=== PATIENT | female | born 2000 | race African-American/Black ===

== ENCOUNTER 2025-03-27 10:09 | Inpatient (IN) | payer MEDICAID ==
[~2025-03-27] VITALS: Ht 165.1 cm; Wt 75.0 kg
[2025-03-27 10:17] VITALS: O2SAT 100
[2025-03-27] MEDS: SODIUM CHLORIDE 0.9% 1,000 ML IV ONE (11:57)
[2025-03-27] MEDS: KETOROLAC 15MG/ML VIAL IV ONE (11:58)
[2025-03-27 12:11] LABS: BASOPHILS % 0.9 % (0.0-2.0); EOSINOPHILS % 2.3 % (0.0-5.0); HEMATOCRIT. 38.5 % (36.0-48.0); HEMOGLOBIN. 12.2 g/dL (12.0-16.0); LYMPHOCYTES % 39.8 % (20.0-50.0); MEAN PLATELET VOLUME 7.2 fl (7.4-10.4); MONOCYTES % 6.0 % (2.0-8.0); NEUTROPHILS % 51.0 % (40.0-76.0); PLATELET 383 x1000/uL (130-400); RED BLOOD CELL COUNT 5.11 mill/uL (4.2-5.4); RED CELL DISTRIBUTION WIDTH 17.1 % (11.6-14.6)
[2025-03-27 12:24] LABS: CREATININE 0.7 mg/dL (0.6-1.0)
[2025-03-27 12:25] LABS: HCG SCREEN NEGATIVE; UREA NITROGEN BLOOD 7 mg/dL (9-23)
[2025-03-27 12:29] LABS: TROPONIN I HIGH SENSITIVITY < 4 ng/L (3.0-34)
[2025-03-27 14:02] VITALS: O2SAT 100
[2025-03-27 17:12] VITALS: BP 134/62; PULSE 60; RESP 16; TEMP 36.696; TEMP 36.6960
== END 2025-03-27 16:00 | disposition left against medical advice (07) | DRG 111 ==
LOC: ER 10:09 → EDBEDREQ 11:45 → 5WST 13:17 → EDBEDREQTM 13:22 → EDBEDREQ 13:22
PROVIDERS: ADMIT Internal Medicine; ATTEND Internal Medicine
DX: R42 Dizziness and giddiness (principal); R07.9 Chest pain, unspecified; R10.13 Epigastric pain; Z53.29 Procedure and treatment not carried out because of patient's decision for other reasons; Z82.49 Family history of ischemic heart disease and other diseases of the circulatory system
CPT/HCPCS: 36415; 71045; 76705; 80048; 84484; 84703; 85025; 93005; 96361; 96374; 99285; J1885; J7030